=== PATIENT | male | born 1950 | race Caucasian/White ===

== ENCOUNTER → 2024-09-14 06:12 | Outpatient (REF) | payer MEDICARE, SELFPAY | LOC: EMG 06:12 | PROVIDERS: ATTENDING PHYSICIAN Orthopaedic Surgery Hand Surgery; FAMILY PHYSICIAN Nurse Practitioner Family | DX: G56.01 Carpal tunnel syndrome, right upper limb (principal); G20.B1 Parkinson's disease with dyskinesia, without mention of fluctuations; R20.0 Anesthesia of skin | CPT/HCPCS: 95886; 95909 ==